=== PATIENT | male | born 1995 | race Caucasian/White ===

== ENCOUNTER 2020-09-13 07:58 | Emergency (ER) | payer SELFPAY ==
[~2020-09-13] VITALS: Ht 180.3 cm; Wt 124.7 kg
[2020-09-13] MEDS ORDERED: BACITRACIN OINT 500 UNITS/GM PKT TP ONE (08:00)
[2020-09-13 08:01] VITALS: BP 173/91
[2020-09-13 09:46] VITALS: BP 173/91
== END 2020-09-13 09:49 ==
LOC: MED 07:58
DX: S80.212A Abrasion, left knee, initial encounter (principal); S80.211A Abrasion, right knee, initial encounter; S50.312A Abrasion of left elbow, initial encounter; F17.200 Nicotine dependence, unspecified, uncomplicated; X58.XXXA Exposure to other specified factors, initial encounter; Y93.89 Activity, other specified; Y92.89 Other specified places as the place of occurrence of the external cause; Y99.8 Other external cause status
CPT/HCPCS: 71045; 73562; 93005; 99284